=== PATIENT | female | born 1945 | race Asian ===

== ENCOUNTER 2024-01-15 17:39 | Inpatient (IN) | payer MEDICARE, BC ==
[~2024-01-15] VITALS: Ht 152.4 cm; Wt 40.8 kg
[2024-01-15] MEDS ORDERED: MORPHINE SULFATE 4 MG/1 ML DISP.SYRIN ONE (17:55)
[2024-01-15] MEDS ORDERED: ONDANSETRON 4 MG/2 ML VIAL ONE (17:55)
[2024-01-15] MEDS: MORPHINE SULFATE 4 MG/1 ML DISP.SYRIN IV ONE (17:58)
[2024-01-15] MEDS: ONDANSETRON 4 MG/2 ML VIAL IV ONE (17:58)
[2024-01-15] MEDS ORDERED: MEMANTINE (18:03)
[2024-01-15] MEDS ORDERED: METFORMIN PO (18:03)
[2024-01-15 18:26] LABS: BASOPHILS % (AUTO) 0.1 % (0.0-2.0); EOSINOPHILS % (AUTO) 0.1 % (0.0-7.0); HEMATOCRIT 35.2 % (31.2-41.9); HEMOGLOBIN 11.6 g/dL (10.9-14.3); LYMPHOCYTES # (AUTO) 0.7 K/uL (0.8-4.8); LYMPHOCYTES % (AUTO) 6.8 % (20.5-51.5); MEAN CORPUSCULAR HEMOGLOBIN 30.4 uug (24.7-32.8); MEAN CORPUSCULAR HGB CONC 33 g/dL (32.3-35.6); MEAN CORPUSCULAR VOLUME 92.2 fL (75.5-95.3); MONOCYTES # (AUTO) 0.4 K/uL (0.1-1.30); MONOCYTES % (AUTO) 4.3 % (0.0-11.0); NEUTROPHILS # (AUTO) 8.6 K/uL (1.8-8.9); NEUTROPHILS % (AUTO) 88.7 % (38.5-71.5); PLATELET COUNT (AUTO) 197 K/uL (179-408); RED BLOOD CELL COUNT(AUTO) 3.82 MIL/uL (3.63-4.92); WHITE BLOOD COUNT (AUTO) 9.7 K/uL (3.8-11.8)
[2024-01-15] MEDS: HYDROMORPHONE 1 MG/1 ML DISP.SYRIN IV ONE (18:26)
[2024-01-15] MEDS: diphenhydrAMINE 50 MG/1 ML VIAL IV ONE (18:26)
[2024-01-15 18:33] LABS: DIFFERENTIAL COMMENT 1
[2024-01-15 18:45] LABS: ALANINE AMINOTRANSFERASE 28 U/L (14-59); ALBUMIN 3.5 g/dL (3.4-5.0); ALKALINE PHOSPHATASE 77 U/L (50-136); ASPARTATE AMINOTRANSFERASE 25 U/L (15-37); BILIRUBIN,TOTAL 0.6 mg/dL (0.2-1.0); CALCIUM 8.8 mg/dL (8.5-10.1); CARBON DIOXIDE 27 mmol/L (21-32); CHLORIDE 105 mmol/L (98-107); CREATININE 0.6 mg/dL (0.6-1.3); GLUCOSE 172 mg/dL (74-106); POTASSIUM 3.8 mmol/L (3.5-5.1); SODIUM SERUM 141 mmol/L (136-145); TOTAL PROTEIN, SERUM 7.1 g/dL (6.4-8.2); UREA NITROGEN, BLOOD 25 mg/dL (7-18)
[2024-01-15 19:18] LABS: *BILIRUBIN,URIN NEGATIVE (NEGATIVE); *CLARITY,URINE CLEAR (CLEAR); *COLOR,URINE YELLOW (YELLOW); *KETONES,URINE 1+ (NEGATIVE); *PROTEIN,URINE NEGATIVE (NEGATIVE); *UROBILINOGEN,URINE 0.2 E.U./dl (NORMAL); LEUKOCYTE ESTERASE ,URINE NEGATIVE (NEGATIVE); NITRITE, URINE NEGATIVE (NEGATIVE); PH,URINE 5.5 (5.0-8.0); UGLUCOSE NEGATIVE (NEGATIVE)
[2024-01-15 19:35] LABS: *BLOOD, URINE TRACE (NEGATIVE)
[2024-01-15 19:50] LABS: BACTERIA,URINE FEW /HPF (NONE SEEN); SQUAMOUS EPITHELIAL CELL,UR FEW /HPF (NONE SEEN); WBC,URINE 0-3 /HPF (0-3)
[2024-01-15 19:51] LABS: CALCIUM OXALATE CRYSTALS,UR MODERATE /HPF (NONE SEEN)
[2024-01-15] MEDS ORDERED: ENALAPRILAT DIHYDRATE 1.25 MG/1 ML VIAL IV PRN (20:00)
[2024-01-15] MEDS ORDERED: ALBUTEROL SULFATE 1.25 MG/3 ML NEBU NEB PRN (20:00)
[2024-01-15] MEDS ORDERED: ONDANSETRON 4 MG/2 ML VIAL IV PRN (20:00)
[2024-01-15] MEDS ORDERED: DEXTROSE 50% 50 ML DISP.SYRIN IV PRN (20:00)
[2024-01-15] MEDS: BLOOD SUGAR DIAGNOSTIC 1 EACH STRIP VI SCH (20:45)
[2024-01-15 21:01] VITALS: BP 114/68; TEMP 98.7; O2SAT 95
[2024-01-15] MEDS: HYDROMORPHONE 1 MG/1 ML DISP.SYRIN IV PRN (22:30)
[2024-01-15] MEDS: IV D5/ 0.9% NACL 1,000 ML IV PRN (22:35)
[2024-01-16] VITALS (8 sets, daily range): BP systolic 102–122; BP diastolic 58–65; TEMP 91.9–98.9; O2SAT 90–99
[2024-01-16] MEDS: INSULIN REGULAR, HUMAN 1000 UNIT/10 ML VIAL SQ PRN (00:10)
[2024-01-16 08:10] LABS: BASOPHILS % (AUTO) 0.3 % (0.0-2.0); EOSINOPHILS # (AUTO) 0.1 K/uL (0.0-0.7); EOSINOPHILS % (AUTO) 1.8 % (0.0-7.0); HEMATOCRIT 32.3 % (31.2-41.9); HEMOGLOBIN 10.8 g/dL (10.9-14.3); LYMPHOCYTES # (AUTO) 0.8 K/uL (0.8-4.8); LYMPHOCYTES % (AUTO) 11.1 % (20.5-51.5); MEAN CORPUSCULAR HEMOGLOBIN 30.9 uug (24.7-32.8); MEAN CORPUSCULAR HGB CONC 33 g/dL (32.3-35.6); MEAN CORPUSCULAR VOLUME 92.6 fL (75.5-95.3); MONOCYTES # (AUTO) 0.4 K/uL (0.1-1.30); MONOCYTES % (AUTO) 5.6 % (0.0-11.0); NEUTROPHILS # (AUTO) 6.1 K/uL (1.8-8.9); NEUTROPHILS % (AUTO) 81.2 % (38.5-71.5); PLATELET COUNT (AUTO) 166 K/uL (179-408); RED BLOOD CELL COUNT(AUTO) 3.49 MIL/uL (3.63-4.92); RED CELL DISTRIBUTION WIDTH 14.9 % (12.3-17.7); WHITE BLOOD COUNT (AUTO) 7.5 K/uL (3.8-11.8)
[2024-01-16] MEDS: PANTOPRAZOLE SODIUM 40 MG VIAL IV SCH (08:19)
[2024-01-16 08:24] LABS: ALANINE AMINOTRANSFERASE 25 U/L (14-59); ALBUMIN 2.9 g/dL (3.4-5.0); ALKALINE PHOSPHATASE 67 U/L (50-136); ASPARTATE AMINOTRANSFERASE 21 U/L (15-37); BILIRUBIN,TOTAL 0.7 mg/dL (0.2-1.0); CALCIUM 8.6 mg/dL (8.5-10.1); CARBON DIOXIDE 32 mmol/L (21-32); CHLORIDE 105 mmol/L (98-107); CHOLESTEROL 203 mg/dL (<200); CREATININE 0.6 mg/dL (0.6-1.3); GLUCOSE 143 mg/dL (74-106); HDL CHOLESTEROL 97 mg/dL (40-60); NT-PRO BNP 478 pg/mL (0-125); POTASSIUM 4.5 mmol/L (3.5-5.1); SODIUM SERUM 141 mmol/L (136-145); TOTAL PROTEIN, SERUM 6.3 g/dL (6.4-8.2); TRIGLYCERIDES 44 MG/DL (30-150); UREA NITROGEN, BLOOD 19 mg/dL (7-18)
[2024-01-16 08:25] LABS: DIFFERENTIAL COMMENT 1
[2024-01-16] MEDS ORDERED: MEMA10TA PO (09:16)
[2024-01-16] MEDS ORDERED: COLC0.6T67 PO (09:16)
[2024-01-16] MEDS ORDERED: MEMA10TA56 PO (09:19)
[2024-01-16 09:21] LABS: THYROID STIMULATING HORMONE 1.279 mIU/mL (0.358-3.740)
[2024-01-16 11:27] LABS: IRON, SERUM 24 ug/dL (50-175)
[2024-01-17 00:24] VITALS: BP 117/70; TEMP 101.4; O2SAT 95
[2024-01-17 02:00] LABS: BASOPHILS % (AUTO) 0.4 % (0.0-2.0); EOSINOPHILS # (AUTO) 0.1 K/uL (0.0-0.7); EOSINOPHILS % (AUTO) 0.8 % (0.0-7.0); HEMATOCRIT 36.7 % (31.2-41.9); HEMOGLOBIN 11.9 g/dL (10.9-14.3); LYMPHOCYTES # (AUTO) 0.5 K/uL (0.8-4.8); LYMPHOCYTES % (AUTO) 5.6 % (20.5-51.5); MEAN CORPUSCULAR HGB CONC 33 g/dL (32.3-35.6); MEAN CORPUSCULAR VOLUME 92.1 fL (75.5-95.3); MONOCYTES # (AUTO) 0.4 K/uL (0.1-1.30); NEUTROPHILS # (AUTO) 7.8 K/uL (1.8-8.9); NEUTROPHILS % (AUTO) 88.2 % (38.5-71.5); PLATELET COUNT (AUTO) 162 K/uL (179-408); RED BLOOD CELL COUNT(AUTO) 3.98 MIL/uL (3.63-4.92); RED CELL DISTRIBUTION WIDTH 15.1 % (12.3-17.7); WHITE BLOOD COUNT (AUTO) 8.9 K/uL (3.8-11.8)
[2024-01-17 02:02] LABS: DIFFERENTIAL COMMENT 1
[2024-01-17 02:05] LABS: CALCIUM 8.8 mg/dL (8.5-10.1); CARBON DIOXIDE 28 mmol/L (21-32); CHLORIDE 102 mmol/L (98-107); CREATININE 0.6 mg/dL (0.6-1.3); GLUCOSE 150 mg/dL (74-106); POTASSIUM 3.7 mmol/L (3.5-5.1); SODIUM SERUM 139 mmol/L (136-145); UREA NITROGEN, BLOOD 22 mg/dL (7-18)
[2024-01-17 02:11] LABS: ALANINE AMINOTRANSFERASE 35 U/L (14-59); ALBUMIN 3.1 g/dL (3.4-5.0); ALKALINE PHOSPHATASE 81 U/L (50-136); ASPARTATE AMINOTRANSFERASE 39 U/L (15-37); BILIRUBIN,TOTAL 0.8 mg/dL (0.2-1.0); TOTAL PROTEIN, SERUM 6.8 g/dL (6.4-8.2)
[2024-01-17] MEDS: ACETAMINOPHEN 650 MG SUPP.RECT RC PRN (02:34)
[2024-01-17 03:16] LABS: *BILIRUBIN,URIN NEGATIVE (NEGATIVE); *BLOOD, URINE 3+ (NEGATIVE); *CLARITY,URINE CLEAR (CLEAR); *COLOR,URINE YELLOW (YELLOW); *KETONES,URINE NEGATIVE (NEGATIVE); *PROTEIN,URINE TRACE (NEGATIVE); *UROBILINOGEN,URINE 0.2 E.U./dl (NORMAL); LEUKOCYTE ESTERASE ,URINE NEGATIVE (NEGATIVE); NITRITE, URINE NEGATIVE (NEGATIVE); UGLUCOSE NEGATIVE (NEGATIVE)
[2024-01-17 04:00] VITALS: BP 114/74; TEMP 98.3; O2SAT 96
[2024-01-17 06:18] LABS: BACTERIA,URINE FEW /HPF (NONE SEEN); RBC,URINE 20-50 /HPF (0-3); SQUAMOUS EPITHELIAL CELL,UR FEW /HPF (NONE SEEN); WBC,URINE 0-3 /HPF (0-3)
[2024-01-17] MEDS ORDERED: VANCOMYCIN 1000 MG VIAL ONE (07:00)
[2024-01-17] MEDS ORDERED: FENTANYL CITRATE 100 MCG/2 ML AMPUL ONE (07:16)
[2024-01-17] MEDS ORDERED: MIDAZOLAM HCL 2 MG/2 ML VIAL ONE (07:17)
[2024-01-17] MEDS ORDERED: PROPOFOL 200 MG/20 ML BOTTLE ONE (07:45)
[2024-01-17] MEDS ORDERED: MORPHINE SULFATE 2 MG/1 ML DISP.SYRIN IV PRN (09:45)
[2024-01-17] MEDS ORDERED: IV D5W-0.45% NS +20 KCL 1,000 ML IV ONE (09:59)
[2024-01-17 10:29] VITALS: BP 140/69; TEMP 97.5; O2SAT 98
[2024-01-17] MEDS: IV D5W-0.45% NS +20 KCL 1,000 ML IV PRN (10:30)
[2024-01-17 12:00] VITALS: BP 127/64; TEMP 97; O2SAT 97
[2024-01-17] MEDS: CEFAZOLIN 1 G in IV DEXTROSE 5% 50 ML IV SCH (16:22)
[2024-01-17] MEDS: HYDROCODONE/APAP 10-325 MG TABLET PO PRN (16:29)
[2024-01-17 17:01] VITALS: BP 96/56; O2SAT 97
[2024-01-18 00:07] VITALS: BP 88/48; TEMP 97.8
[2024-01-18 04:03] VITALS: BP 95/56; TEMP 97.7; O2SAT 100
[2024-01-18 06:42] LABS: BASOPHILS % (AUTO) 0.1 % (0.0-2.0); EOSINOPHILS # (AUTO) 0.1 K/uL (0.0-0.7); EOSINOPHILS % (AUTO) 1.5 % (0.0-7.0); HEMATOCRIT 27.6 % (31.2-41.9); HEMOGLOBIN 9.2 g/dL (10.9-14.3); LYMPHOCYTES # (AUTO) 0.9 K/uL (0.8-4.8); LYMPHOCYTES % (AUTO) 12.2 % (20.5-51.5); MEAN CORPUSCULAR HGB CONC 34 g/dL (32.3-35.6); MEAN CORPUSCULAR VOLUME 92.5 fL (75.5-95.3); MONOCYTES # (AUTO) 0.7 K/uL (0.1-1.30); MONOCYTES % (AUTO) 9.1 % (0.0-11.0); NEUTROPHILS # (AUTO) 5.8 K/uL (1.8-8.9); NEUTROPHILS % (AUTO) 77.1 % (38.5-71.5); PLATELET COUNT (AUTO) 131 K/uL (179-408); RED BLOOD CELL COUNT(AUTO) 2.98 MIL/uL (3.63-4.92); RED CELL DISTRIBUTION WIDTH 14.8 % (12.3-17.7); WHITE BLOOD COUNT (AUTO) 7.5 K/uL (3.8-11.8)
[2024-01-18 06:56] LABS: DIFFERENTIAL COMMENT 1
[2024-01-18 07:09] LABS: CALCIUM 8.1 mg/dL (8.5-10.1); CARBON DIOXIDE 28 mmol/L (21-32); CHLORIDE 106 mmol/L (98-107); CREATININE 0.6 mg/dL (0.6-1.3); GLUCOSE 155 mg/dL (74-106); MAGNESIUM 1.9 mg/dL (1.8-2.4); PHOSPHOROUS 2.2 mg/dL (2.5-4.9); POTASSIUM 4.2 mmol/L (3.5-5.1); SODIUM SERUM 137 mmol/L (136-145); UREA NITROGEN, BLOOD 18 mg/dL (7-18)
[2024-01-18] MEDS ORDERED: METF-440 PO (09:22)
[2024-01-18 11:00] VITALS: O2SAT 97
[2024-01-18] MEDS ORDERED: HYDR-3980 PO (12:27)
[2024-01-18] MEDS ORDERED: PANT40TA49 PO (12:27)
[2024-01-18 15:50] VITALS: BP 91/52; TEMP 98.1; O2SAT 100
[2024-01-18] MEDS: NEUTRA PHOS PACKET PO ONE (16:13)
[2024-01-19] MEDS ORDERED: PANTOPRAZOLE SODIUM 40 MG TABLET.DR PO SCH (07:00)
== END 2024-01-18 16:21 | DRG 522 ==
LOC: ER 17:40 → TELE3 19:44 → MEDSURG3 01-18 08:05
PROVIDERS: ADMIT Internal Medicine; ATTEND Internal Medicine
PROC: 0SRS0JA Replacement of Left Hip Joint, Femoral Surface with Synthetic Substitute, Uncemented, Open Approach (ICD-10-PCS; principal; 2024-01-17)
DX: S72.142A Displaced intertrochanteric fracture of left femur, initial encounter for closed fracture (principal); Z68.1 Body mass index [BMI] 19.9 or less, adult; S72.012A Unspecified intracapsular fracture of left femur, initial encounter for closed fracture; W18.30XA Fall on same level, unspecified, initial encounter; Y92.89 Other specified places as the place of occurrence of the external cause; R62.7 Adult failure to thrive; E11.65 Type 2 diabetes mellitus with hyperglycemia; G30.9 Alzheimer's disease, unspecified; F02.80 Dementia in other diseases classified elsewhere, unspecified severity, without behavioral disturbance, psychotic disturbance, mood disturbance, and anxiety; Z91.040 Latex allergy status; Z91.010 Allergy to peanuts; Z85.3 Personal history of malignant neoplasm of breast; M51.36 Other intervertebral disc degeneration, lumbar region; M10.9 Gout, unspecified; I25.10 Atherosclerotic heart disease of native coronary artery without angina pectoris; M15.9 Polyosteoarthritis, unspecified; I25.2 Old myocardial infarction
CPT/HCPCS: 36415; 71045; 72170; 73501; 83550; 83605; 83735; 84100; 84443; 84484; 85025; 85730; 87040; 93005; 93307; A4649; C1776; G0378; J0330; J0690; J1100; J1170; J1815; J2250; J2270; J2405; J2470; J3010; J3370; J3490; J7040; J7042

== ENCOUNTER 2024-01-18 16:22 | Inpatient (IN) | payer MEDICARE, BC ==
[~2024-01-18] VITALS: Ht 157.5 cm; Wt 40.8 kg
[~2024-01-18 16:22] MED LIST: COLC0.6T67 PO; HYDR-3980 PO; MEMA10TA56 PO; METF-440 PO; METFORMIN PO; PANT40TA49 PO
[2024-01-18] MEDS ORDERED: ZOLPIDEM 5 MG TABLET PO PRN (17:45)
[2024-01-18] MEDS ORDERED: ONDANSETRON 4 MG/2 ML VIAL IV PRN (17:45)
[2024-01-18] MEDS ORDERED: MAGNESIUM HYDROXIDE 30 ML LIQUID UDC PO PRN (17:45)
[2024-01-18] MEDS ORDERED: REMEDY ESSENTIAL ZINC PASTE 113 GM TP PRN (17:45)
[2024-01-18] MEDS ORDERED: HYDROCODONE/APAP 10-325 MG TABLET PO PRN (20:00)
[2024-01-18] MEDS: DOCUSATE SODIUM 100 MG CAPSULE PO SCH (21:22)
[2024-01-18 21:41] VITALS: BP 105/60; TEMP 98.2; O2SAT 90
[2024-01-18] MEDS: ACETAMINOPHEN 325 MG TABLET PO PRN (23:54)
[2024-01-19 06:24] VITALS: BP 120/71; TEMP 98.4; O2SAT 80
[2024-01-19 06:43] LABS: BASOPHILS % (AUTO) 0.4 % (0.0-2.0); EOSINOPHILS # (AUTO) 0.2 K/uL (0.0-0.7); EOSINOPHILS % (AUTO) 3.2 % (0.0-7.0); HEMATOCRIT 28.4 % (31.2-41.9); HEMOGLOBIN 9.7 g/dL (10.9-14.3); LYMPHOCYTES # (AUTO) 0.9 K/uL (0.8-4.8); LYMPHOCYTES % (AUTO) 15.1 % (20.5-51.5); MEAN CORPUSCULAR HEMOGLOBIN 31.2 uug (24.7-32.8); MEAN CORPUSCULAR HGB CONC 34 g/dL (32.3-35.6); MEAN CORPUSCULAR VOLUME 91.5 fL (75.5-95.3); MONOCYTES # (AUTO) 0.6 K/uL (0.1-1.30); MONOCYTES % (AUTO) 10.5 % (0.0-11.0); NEUTROPHILS # (AUTO) 4.3 K/uL (1.8-8.9); NEUTROPHILS % (AUTO) 70.8 % (38.5-71.5); PLATELET COUNT (AUTO) 143 K/uL (179-408); RED CELL DISTRIBUTION WIDTH 14.7 % (12.3-17.7)
[2024-01-19 06:46] LABS: DIFFERENTIAL COMMENT 1
[2024-01-19 06:58] LABS: CALCIUM 8.5 mg/dL (8.5-10.1); CARBON DIOXIDE 31 mmol/L (21-32); CHLORIDE 105 mmol/L (98-107); CHOLESTEROL 166 mg/dL (<200); CREATININE 0.5 mg/dL (0.6-1.3); GLUCOSE 133 mg/dL (74-106); HDL CHOLESTEROL 71 mg/dL (40-60); MAGNESIUM 1.9 mg/dL (1.8-2.4); PHOSPHOROUS 2.9 mg/dL (2.5-4.9); POTASSIUM 3.7 mmol/L (3.5-5.1); SODIUM SERUM 140 mmol/L (136-145); TRIGLYCERIDES 69 MG/DL (30-150); UREA NITROGEN, BLOOD 15 mg/dL (7-18)
[2024-01-19] MEDS ORDERED: PANTOPRAZOLE SODIUM 40 MG TABLET.DR PO SCH (07:00)
[2024-01-19] MEDS: PANTOPRAZOLE SODIUM 40 MG TABLET.DR PO SCH (07:04)
[2024-01-19] MEDS: METFORMIN HCL 500 MG TABLET PO SCH (08:21)
[2024-01-19] MEDS: COLCHICINE 0.6 MG TABLET PO SCH (08:21)
[2024-01-19] MEDS: MEMANTINE HCL 10 MG TABLET PO SCH (08:22)
[2024-01-19] MEDS: HYDROCODONE/APAP 5-325MG TABLET PO PRN (10:06)
[2024-01-19 20:05] VITALS: BP 106/66; TEMP 98.2; O2SAT 99
[2024-01-20 05:30] VITALS: BP 110/70; TEMP 97.8; O2SAT 99
[2024-01-20] MEDS: GLUCERNA SHAKE 237 ML CAN PO SCH (08:52)
[2024-01-20 16:00] VITALS: BP 129/79; TEMP 97.8; O2SAT 98
[2024-01-20 19:00] VITALS: BP 113/64; TEMP 97.6; O2SAT 91
[2024-01-21 16:00] VITALS: BP 117/58; TEMP 97.5; O2SAT 95
[2024-01-21 19:00] VITALS: BP 113/66; TEMP 98.4; O2SAT 90
[2024-01-22 06:05] VITALS: BP 122/68; TEMP 98.7; O2SAT 93
[2024-01-22 16:18] VITALS: BP 110/64; TEMP 97.9; O2SAT 96
[2024-01-22 20:15] VITALS: BP 114/66; TEMP 98.2; O2SAT 96
[2024-01-23 06:00] VITALS: BP 102/65; TEMP 98.4; O2SAT 95
[2024-01-23 15:53] VITALS: BP 131/70; TEMP 97.6; O2SAT 95
[2024-01-23 20:00] VITALS: BP 106/64; TEMP 97.1; O2SAT 94
[2024-01-23] MEDS: REMEDY ESSENTIAL ZINC PASTE 113 GM TP SCH (21:13)
[2024-01-24 06:00] VITALS: BP 117/69; TEMP 98.3; O2SAT 95
[2024-01-24 16:46] VITALS: BP 97/60; TEMP 97.6; O2SAT 97
[2024-01-24 19:00] VITALS: BP 104/62; TEMP 98.3; O2SAT 90
[2024-01-25 06:00] VITALS: BP 110/67; TEMP 97.6; O2SAT 95
[2024-01-25 15:22] VITALS: BP 99/60; TEMP 97.7; O2SAT 96
[2024-01-25 22:12] VITALS: BP 110/56; TEMP 98.1; O2SAT 93
[2024-01-26 06:00] VITALS: BP 98/60; TEMP 98.4; O2SAT 96
[2024-01-26 08:31] VITALS: BP 101/60; TEMP 97.9; O2SAT 95
[2024-01-26 16:00] VITALS: BP 96/55; TEMP 97.7; O2SAT 95
[2024-01-26 20:00] VITALS: BP 117/68; TEMP 98.3; O2SAT 96
[2024-01-27 06:00] VITALS: BP 103/59; TEMP 98.4; O2SAT 96
[2024-01-27 18:00] VITALS: BP 95/59; TEMP 98; O2SAT 95
[2024-01-27 20:00] VITALS: BP 96/59; TEMP 98.2; O2SAT 96
[2024-01-28 16:30] VITALS: BP 99/60; TEMP 98; O2SAT 97
[2024-01-28 20:43] VITALS: BP 95/54; TEMP 97.9; O2SAT 93
[2024-01-29 06:20] VITALS: BP 102/56; TEMP 98; O2SAT 93
[2024-01-29 16:32] VITALS: BP 110/69; TEMP 98; O2SAT 97
[2024-01-29 19:44] VITALS: BP 100/58; TEMP 98.1
[2024-01-30 06:10] VITALS: BP 106/55; TEMP 97.9
[2024-01-30 09:07] VITALS: BP 98/53; TEMP 97.9; O2SAT 98
[2024-01-30 15:05] VITALS: BP 104/58; TEMP 97.9; O2SAT 96
== END 2024-01-30 15:52 | disposition home health service (06) | DRG 560 ==
PROVIDERS: ADMIT Physical Medicine & Rehabilitation Pain Medicine; ATTEND Physical Medicine & Rehabilitation Pain Medicine
DX: Z47.1 Aftercare following joint replacement surgery (principal); D68.59 Other primary thrombophilia; Z68.1 Body mass index [BMI] 19.9 or less, adult; R64 Cachexia; E44.0 Moderate protein-calorie malnutrition; W18.30XD Fall on same level, unspecified, subsequent encounter; Z96.642 Presence of left artificial hip joint; D63.8 Anemia in other chronic diseases classified elsewhere; D69.6 Thrombocytopenia, unspecified; E11.9 Type 2 diabetes mellitus without complications; F02.80 Dementia in other diseases classified elsewhere, unspecified severity, without behavioral disturbance, psychotic disturbance, mood disturbance, and anxiety; G30.9 Alzheimer's disease, unspecified; I35.8 Other nonrheumatic aortic valve disorders; M19.90 Unspecified osteoarthritis, unspecified site; Z91.010 Allergy to peanuts; I25.10 Atherosclerotic heart disease of native coronary artery without angina pectoris; Z91.040 Latex allergy status; R62.7 Adult failure to thrive; Z74.09 Other reduced mobility
CPT/HCPCS: 36415; 73502; 83735; 84100; 85025; 97535-GO-CO